=== PATIENT | female | born 1950 | race Caucasian/White ===

== ENCOUNTER 2017-01-11 11:33 | Emergency (ER) | payer OTHER ==
--- NOTE | 2017-01-11 12:10 | CPEKG ---
Heart Rate: 93 RR Interval: 645 P-R Interval: 164 QRSD Interval: 78 QT Interval: 360 QTC Interval: 448 P [place]: 50 QRS [place]: 50 T Wave [place]: 43 EKG Severity - NORMAL ECG - EKG Impression: SINUS RHYTHM Electronically Signed By: Urbano Canales 11-Jan-2017 15:41:10
[2017-01-11] MEDS ORDERED: IPRATROPIUM/ALBUTEROL 3 ML DEYVIAL IH ONE (12:21)
--- NOTE | 2017-01-11 12:21 | EDPHY ---
H & P Time Seen by Provider: 01/11/17 11:54 HPI/ROS: Chief complaint. Cough, shortness of breath HPI. 66-year-old female cough with some shortness of breath for 2 days. Cough is nonproductive. It is hard to sleep at night secondary to cough. History of pneumonia. No fever. Her sides hurt from coughing. She also has a history of asthma. Exposure to sick contacts 5 days ago with the flu. ROS Constitutional. no fever/chills, no weakness Eyes. no problems with vision ENT. no sore throat, no nasal drainage Cardiovascular. Sides of chest hurt from coughing Respiratory. Shortness of breath and cough Abdominal. no abdominal pain, no nausea/vomiting, no diarrhea . no problems urinating MS. no calf pain/swelling, no neck/back pain, no joint pain Skin. no rash Lymph. no swollen glands Neuro. no headache, no dizziness, no difficulty walking or with speech Past Medical/Surgical History: Asthma and pneumonia, hypertension Social History: Single nonsmoker no alcohol Smoking Status: Former smoker Physical Exam: General Appearance: Alert well-developed female mild distress vitals are stable. Initial O2 saturation 88% on room air Eyes: Pupils equal and round no pallor or injection. ENT, Mouth: Mucous membranes are moist. Respiratory: No retractions. Lungs are clear Cardiovascular: Regular rate and rhythm. Gastrointestinal: Abdomen is soft and nontender, no masses, bowel sounds normal. Neurological: Awake and alert, sensory and motor exams grossly normal. Skin: Warm and dry, no rashes. Musculoskeletal: Neck is supple nontender. Extremities symmetrical, full range of motion. Psychiatric: Patient is oriented X 3, there is no agitation. Constitutional: Initial Vital Signs Temperature (C) 37.6 C 01/11/17 11:38 Heart Rate 95 01/11/17 11:38 Blood Pressure 148/83 H 01/11/17 11:38 O2 Sat (%) 88 L 01/11/17 11:38 O2 Delivery Mode Room Air O2 (L/minute) 2 Allergies/Adverse Reactions: Penicillins Allergy (Intermediate, Verified 01/11/17 11:42) Hives Home Medications: Medication Instructions Recorded Albuterol Sulfate [PROVENTIL HFA] 2 puffs IH Q4-6PRN PRN #1 01/11/17 hfa.aer.ad HYDROcodone/HOMATROPINE HYCODA 1 tsp PO Q4-6PRN PRN #100 ml 01/11/17 [Hycodan Syrup (*)] Hydrochlorothiazide [HCTZ (*)] 25 mg PO DAILY 01/11/17 Lisinopril [Zestril 20 mg (*)] 20 mg PO DAILY 01/11/17 Oseltamivir Phosphate [Tamiflu 75 75 mg PO BID #10 cap 01/11/17 mg (*)] amLODIPine BESYLATE [Norvasc 5 mg 5 mg PO DAILY 01/11/17 (*)] Medical Decision Making - Diagnostics EKG Interpretation: EKG interpreted by me shows normal sinus rhythm with normal interval and axis. QRS is normal no significant ST elevation or depression. Rate 93 Imaging: Chest x-ray shows no evidence for pneumonia Procedures: Patricia kruegerrachristine ED Course/Re-evaluation: After updraft patient's lungs sound somewhat more clear. She feels somewhat better. Flu swab is positive for flu A re-evaluation at 2:20 p.m. patient and I discussed imaging and lab results. We discussed treatment plan including criteria for return importance of follow-up further evaluation. She expresses understanding and agreement Differential Diagnosis: I considered pneumonia influenza, COPD, acute coronary syndrome - Data Points Laboratory Results: Laboratory Results 01/11/17 12:15 01/11/17 12:15 01/11/17 01/11/17 01/11/17 12:25 12:15 12:15 WBC RBC Hgb Hct MCV MCH MCHC RDW Plt Count MPV Neut % (Auto) Lymph % (Auto) [place] % (Auto) Eos % (Auto) Baso % (Auto) Nucleat RBC Rel Count Absolute Neuts (auto) Absolute Lymphs (auto) Absolute Monos (auto) Absolute Eos (auto) Absolute Basos (auto) Absolute Nucleated RBC Immature Gran % Immature Gran # VBG Lactic Acid 1.0 mmol/L mmol/L (0.7-2.1) Sodium 131 mEq/L L mEq/L (134-144) Potassium 4.4 mEq/L mEq/L (3.5-5.2) Chloride 96 mEq/L L mEq/L (97-110) Carbon Dioxide 22 mEq/l mEq/l (22-31) Anion Gap 13 mEq/L mEq/L (8-16) BUN 13 mg/dL mg/dL (7-23) Creatinine 0.6 mg/dL mg/dL (0.6-1.0) Estimated GFR > 60 Glucose 110 mg/dL H mg/dL (70-100) Calcium 9.3 mg/dL mg/dL (8.5-10.4) Troponin I < 0.012 ng/mL ng/mL (0-0.034) NT-Pro-B Natriuret Pep 128 pg/mL H pg/mL (0-125) Influenza A & B (PCR) POSITIVE FOR FLU A H (NEGATIVE) 01/11/17 12:15 WBC 5.49 10^3/uL 10^3/uL (3.80-9.50) RBC 4.50 10^6/uL 10^6/uL (4.18-5.33) Hgb 15.0 g/dL g/dL (12.6-16.3) Hct 42.3 % % (38.0-47.0) MCV 94.0 fL fL (81.5-99.8) MCH 33.3 pg pg (27.9-34.1) MCHC 35.5 g/dL g/dL (32.4-36.7) RDW 12.6 % % (11.5-15.2) Plt Count 172 10^3/uL 10^3/uL (150-400) MPV 9.8 fL fL (8.7-11.7) Neut % (Auto) 76.7 % H % (39.3-74.2) Lymph % (Auto) 8.9 % L % (15.0-45.0) [place] % (Auto) 9.5 % % (4.5-13.0) Eos % (Auto) 2.0 % % (0.6-7.6) Baso % (Auto) 1.3 % % (0.3-1.7) Nucleat RBC Rel Count 0.0 % % (0.0-0.2) Absolute Neuts (auto) 4.21 10^3/uL 10^3/uL (1.70-6.50) Absolute Lymphs (auto) 0.49 10^3/uL L 10^3/uL (1.00-3.00) Absolute Monos (auto) 0.52 10^3/uL 10^3/uL (0.30-0.80) Absolute Eos (auto) 0.11 10^3/uL 10^3/uL (0.03-0.40) Absolute Basos (auto) 0.07 10^3/uL 10^3/uL (0.02-0.10) Absolute Nucleated RBC 0.00 10^3/uL 10^3/uL (0-0.01) Immature Gran % 1.6 % H % (0.0-1.1) Immature Gran # 0.09 10^3/uL 10^3/uL (0.00-0.10) VBG Lactic Acid Sodium Potassium Chloride Carbon Dioxide Anion Gap BUN Creatinine Estimated GFR Glucose Calcium Troponin I NT-Pro-B Natriuret Pep Influenza A & B (PCR) Medications Given: Discontinued Medications Albuterol/Ipratropium (Duoneb) 3 ml IH EDNOW ONE Stop: 01/11/17 12:22 Last Admin: 01/11/17 12:44 Dose: 3 ml Departure - Departure Disposition: Home, Routine, Self-Care Clinical Impression: Influenza A Condition: Good Instructions: Influenza (ED) Additional Instructions: Drink plenty of fluids and stay hydrated. Tylenol or Advil as needed for fever. Tamiflu for treatment for your influenza. Albuterol inhaler using 2 puffs every 4 hours to help with breathing and cough. Hycodan cough syrup for cough. Return for worsening symptoms. Recheck with Dr. Mckeon in 2 days if not improved Referrals: Milton Mckeon MD [Primary Care Provider] - 2-3 days, if not improved Prescriptions: Albuterol Sulfate [PROVENTIL HFA] 2 puffs IH Q4-6PRN PRN #1 hfa.aer.ad PRN Reason: Short Of Breath/Dyspnea HYDROcodone/HOMATROPINE HYCODA [Hycodan Syrup (*)] 1 tsp PO Q4-6PRN PRN #100 ml PRN Reason: Cough, Moderate Oseltamivir Phosphate [Tamiflu 75 mg (*)] 75 mg PO BID #10 cap
[2017-01-11 12:24] LABS: % IMMATURE GRANULYOCYTES 1.6 % (0.0-1.1); ABSOLUTE IMMATURE GRANULOCYTES 0.09 10^3/uL (0.00-0.10); ADD DIFF? NO; ADD MORPH? NO; ADD SCAN? NO; ATYPICAL LYMPHOCYTE FLAG 0 (0-99); FRAGMENT RBC FLAG 0 (0-99); HEMATOCRIT 42.3 % (38.0-47.0); LEFT SHIFT FLG 10 (0-99); LIPEMIA HEMOLYSIS FLAG 90 (0-99); MEAN CELL HEMOGLOBIN 33.3 pg (27.9-34.1); MEAN CELL HEMOGLOBIN CONCENTR. 35.5 g/dL (32.4-36.7); MEAN PLATELET VOLUME 9.8 fL (8.7-11.7); PLATELET CLUMPS FLAG 10 (0-99); PLATELET COUNT 172 10^3/uL (150-400); RED CELL DISTRIBUTION WIDTH 12.6 % (11.5-15.2)
[2017-01-11 12:38] LABS: ANION GAP 13 mEq/L (8-16); CALCIUM 9.3 mg/dL (8.5-10.4); CARBON DIOXIDE 22 mEq/l (22-31); CHLORIDE 96 mEq/L (97-110); CREATININE 0.6 mg/dL (0.6-1.0); GLOMERULAR FILTRATION RATE > 60; GLUCOSE 110 mg/dL (70-100); POTASSIUM 4.4 mEq/L (3.5-5.2); SODIUM 131 mEq/L (134-144)
[2017-01-11 12:50] LABS: TROPONIN I < 0.012 ng/mL (0-0.034)
[2017-01-11 14:43] VITALS: BP 107/90; PULSE 83; RESP 16; TEMP 98.2; O2SAT 90
== END 2017-01-11 14:42 | disposition home or self-care (01) ==
DX: J10.1 Influenza due to other identified influenza virus with other respiratory manifestations (principal); I10 Essential (primary) hypertension; J45.909 Unspecified asthma, uncomplicated; Z87.891 Personal history of nicotine dependence

== ENCOUNTER → 2017-09-13 | Outpatient (CLI) | payer OTHER | LOC: FIMAGING 09:31 | PROVIDERS: ATTEND Family Medicine Sports Medicine | DX: M23.352 Other meniscus derangements, posterior horn of lateral meniscus, left knee (principal); M22.42 Chondromalacia patellae, left knee; M25.462 Effusion, left knee; M71.22 Synovial cyst of popliteal space [Baker], left knee ==

== ENCOUNTER → 2017-10-05 | Outpatient (CLI) | payer OTHER | LOC: FIMAGING 14:17 | PROVIDERS: ATTEND Physician Assistant | DX: Z01.818 Encounter for other preprocedural examination (principal) ==

== ENCOUNTER 2017-10-27 07:59 | Day surgery (SDC) | payer OTHER ==
--- NOTE | 2017-10-23 07:59 | GHP ---
[f rep st] HISTORY AND PHYSICAL CHIEF COMPLAINT: Left knee pain. HISTORY OF PRESENT ILLNESS: The patient is a 67-year-old female with a 7 month history of left knee pain, worsening with use over time despite multiple conservative measures. MRI revealed medial and l ateral meniscal tears as well as some osteoarthritic changes to the knee with the onset of pain occur ring after she went from a sitting to standing position where she heard and felt an acute pop within the knee followed by immense pain to the medial portion of her knee. ALLERGIES: Include penicillin. MEDICATIONS: Current medications include amlodipine, hydrochlorothiazide, lisinopril, oseltamivir an d ProAir. PRIOR MEDICAL PROBLEMS: Include arthritis, asthma, high blood pressure, sleep apnea. PRIOR SURGICAL PROBLEMS: Included a left knee arthroscopy, hysterectomy and wisdom teeth removal. SOCIAL HISTORY: She is a former smoker and uses moderate alcohol. PHYSICAL EXAMINATION: HEENT: Pupils are equal, round, reactive to light. CHEST: Clear to ausculta tion. HEART: Regular rate and rhythm. ABDOMEN: Soft and nontender. EXTREMITIES: The left knee h as tenderness to the medial and lateral joint lines as well as some tenderness to the medial compartm ent. MRI reveals medial and lateral meniscal tears as well as grade 4 chondral changes to the medial jacki rtment and grade 3 chondral changes to the lateral patellofemoral compartments. ASSESSMENT AND PLAN: Patient is status post left knee medial and lateral meniscal tears with osteoar thritis. Options were discussed. Plan is to undergo a left knee arthroscopy. /[id number]/MODL
[~2017-10-27 07:59] MED LIST: ACETAMINOPHEN 500 MG TAB PO ONE; BUPIVACAINE/EPI 0.5% 30 ML SDV ONE; CLINDAMYCIN 900 MG/DEXTROSE 50 ML IV ONE
[2017-10-27 08:54] VITALS: PULSE 75
[2017-10-27] MEDS ORDERED: LIDOCAINE 1% 2 ML INJ ID PRN (09:08)
[2017-10-27] MEDS ORDERED: LR 1,000 ML IV ONE (09:08)
[2017-10-27] MEDS ORDERED: CLINDAMYCIN 900 MG/DEXTROSE 50 ML IV ONE (09:15)
[2017-10-27] MEDS ORDERED: ACETAMINOPHEN 500 MG TAB PO ONE (09:15)
--- NOTE | 2017-10-27 10:33 | PDHPUP ---
History & Physical Update H&P update statement: This history and physical update is based on an assessment of the patient which was completed after admission or registration (within 24 hours), but prior to the surgery/procedure. H&P update: H&P reviewed & patient examined, no change in patient's condition since H&P completed
[2017-10-27] MEDS ORDERED: MIDAZOLAM 2 MG/2 ML VIAL ONE (10:47)
[2017-10-27] MEDS ORDERED: MIDAZOLAM 2 MG/2 ML VIAL IVP ONE (10:48)
--- NOTE | 2017-10-27 10:49 | PDANEPAE ---
ANE Past Medical History - Cardiovascular History Hx Hypertension: Yes Hx Arrhythmias: No Hx Chest Pain: No Hx Coronary Artery / Peripheral Vascular Disease: No Hx CHF / Valvular Disease: No Hx Palpitations: No - Pulmonary History Hx COPD: No Hx Asthma/Reactive Airway Disease: Yes Hx Recent Upper Respiratory Infection: No Hx Oxygen in Use at Home: No Hx Sleep Apnea: Yes Sleep Apnea Screening Result - Last Documented: Positive Pulmonary History Comment: ASTHMA. POS GRISELDA -MILD - NO CPAP. PNEUMONIA 2-3 YRS AGO - Neurologic History Hx Cerebrovascular Accident: No Hx Seizures: No Hx Dementia: No - Endocrine History Hx Diabetes: No Hypothyroid: No Hyperthyroid: No Obesity: yes, severe - Renal History Hx Renal Disorders: No - Liver History Hx Hepatic Disorders: No - Neurological & Psychiatric Hx Hx Neurological and Psychiatric Disorders: No - Cancer History Hx Cancer: No - Congenital Disorder History Hx Congenital Disorders: No - GI History GERD: no Hx Gastrointestinal Disorders: No - Other Health History Other Health History: SCALP DERMATITIS - OCCAS - Chronic Pain History Chronic Pain: Yes (L KNEE) - Surgical History Prior Surgeries: HYSTERECTOMY. WISDOM TEETH. PREVIOUS L KNEE SCOPE 2012. FINGER SURGERY ANE Review of Systems Review of Systems: - Exercise capacity METS (RN): 4 METS ANE Patient History - Allergies Allergies/Adverse Reactions: Penicillins Allergy (Intermediate, Verified 01/11/17 11:42) Hives - Home Medications Home Medications: Hydrochlorothiazide [HCTZ (*)] 25 mg PO DAILY 01/11/17 [Last Taken 10/27/17] Lisinopril [Zestril 20 mg (*)] 20 mg PO DAILY 01/11/17 [Last Taken 10/27/17] amLODIPine BESYLATE [Norvasc 5 mg (*)] 5 mg PO DAILY 01/11/17 [Last Taken ] Ibuprofen 09/28/17 [Last Taken 10/27/17] - NPO status NPO Since - Liquids (Date): 10/26/17 NPO Since - Liquids (Time): 23:59 NPO Since - Solids (Date): 10/26/17 NPO Since - Solids (Time): 21:00 - Anes Hx Anes Hx: no prior problems - Smoking Hx Smoking Status: Former smoker - Family Anes Hx Family Hx Anesthesia Complications: NEG ANE Labs/Vital Signs - Vital Signs Blood Pressure: 147/78 Heart Rate: 75 Respiratory Rate: 16 O2 Sat (%): 93 Height: 161.29 cm Weight: 120.202 kg ANE Physical Exam - Airway Neck exam: FROM Mallampati Score: Class 3 Mouth exam: normal dental/mouth exam - Pulmonary Pulmonary: no respiratory distress, no rales or rhonchi, clear to auscultation - Cardiovascular Cardiovascular: regular rate and rhythym, no murmur, rub, or gallop - ASA Status ASA Status: III ANE Anesthesia Plan Anesthesia Plan: MAC, spinal
[2017-10-27] MEDS ORDERED: PROPOFOL/EMULSION 500 MG/50 ML BOTTLE IV ONE (10:54)
[2017-10-27] MEDS ORDERED: fentaNYL 100 MCG/2 ML INJ ONE (10:54)
[2017-10-27] MEDS ORDERED: LIDOCAINE 2% 5 ML SDV ONE ×2 (11:13)
[2017-10-27] MEDS ORDERED: epHEDrine SULFATE 10 MG/ML SYR ONE ×2 (11:25→11:42)
[2017-10-27] MEDS ORDERED: PROMETHAZINE HCL 25 MG/ML INJ IVP PRN ×2 (11:26→12:04)
[2017-10-27] MEDS ORDERED: LR 500 ML IV PRN (11:26)
[2017-10-27] MEDS ORDERED: fentaNYL 100 MCG/2 ML INJ IVP PRN (11:26)
[2017-10-27] MEDS ORDERED: HYDROCODONE/APAP 5/325 TAB PO PRN (11:26)
[2017-10-27] MEDS ORDERED: OXYCODONE/APAP 5/325 TAB PO PRN (11:26)
[2017-10-27] MEDS ORDERED: NALOXONE HCL 0.4 MG/ML INJ IVP PRN (11:26)
[2017-10-27] MEDS ORDERED: ACETAMINOPHEN 500 MG TAB PO PRN (11:26)
[2017-10-27] MEDS ORDERED: ONDANSETRON 4 MG/2 ML VIAL IVP PRN ×2 (11:26→12:04)
[2017-10-27] MEDS ORDERED: LACTULOSE 20 GM/30 ML UDCUP PO PRN (12:04)
[2017-10-27] MEDS ORDERED: MAGNESIUM HYDROXIDE 30 ML UDCUP PO PRN (12:04)
[2017-10-27] MEDS ORDERED: ONDANSETRON DISINTEGRATING 4 MG TAB PO PRN (12:04)
[2017-10-27] MEDS ORDERED: CYCLOBENZAPRINE 10 MG TAB PO PRN (12:04)
[2017-10-27] MEDS ORDERED: oxyCODONE IR 5 MG TAB PO PRN (12:04)
[2017-10-27] MEDS ORDERED: METOCLOPRAMIDE 10 MG/2 ML VIAL IVP PRN (12:04)
[2017-10-27] MEDS ORDERED: DIPHENOXYLATE/ATROPINE LOMOTIL 1 TAB PO PRN (12:04)
[2017-10-27] MEDS ORDERED: POLYETHYLENE GLYCOL 3350 17 GM PKT PO PRN (12:04)
[2017-10-27] MEDS ORDERED: TEMAZEPAM 15 MG CAP PO PRN (12:04)
[2017-10-27] MEDS ORDERED: BISACODYL 10 MG SUPP PR PRN (12:04)
[2017-10-27] MEDS ORDERED: KETOROLAC 30 MG/1 ML SDV IVP PRN (12:04)
[2017-10-27] MEDS ORDERED: diphenhydrAMINE 25 MG CAP PO PRN (12:04)
[2017-10-27] MEDS ORDERED: PROMETHAZINE HCL 25 MG SUPPR PR PRN (12:04)
--- NOTE | 2017-10-27 12:04 | POSTOPPROG ---
Post Op Note Date of Operation: 10/27/17 Surgeon: Leola Arriola Anesthesiologist: nila Anesthesia: Spinal Pre-op Diagnosis: l knee mmt/lmt/oa Procedure: l knee scope with partial med/lat menisectomy with chondroplasty Inf/Abcess present in the surg proc area at time of surgery?: No Depth: Deep Incisional (Fascial) EBL: 50-100
[2017-10-27] MEDS ORDERED: KETOROLAC 30 MG/1 ML SDV IVP ONE (12:11)
--- NOTE | 2017-10-27 12:12 | POSTANESTH ---
Post Anesthetic Evaluation Cardiovascular Status: Tx Hyper/Hypo-tension Respiratory Status: Normal, Stable Level of Consciousness/Mental Status: Can Participate in Eval Pain Control: Adequate, Prn Tx Ordered Nausea/Vomiting Control: Adequate, Prn Tx Ordered Complications Possibly Related to Anesthesia: None Noted
[2017-10-27] MEDS ORDERED: LR 1,000 ML IV SCH (12:30)
[2017-10-27] MEDS ORDERED: epHEDrine SULFATE 10 MG/ML SYR IM ONE (12:45)
--- NOTE | 2017-10-27 12:52 | GOP ---
[f rep st] OPERATIVE REPORT DATE OF OPERATION: 10/27/2017 SURGEON: Leola Arriola MD ANESTHESIA: By spinal. PREOPERATIVE DIAGNOSIS: Left knee medial and lateral meniscal tears with osteoarthritic changes. POSTOPERATIVE DIAGNOSIS: Left knee medial and lateral meniscal tears with osteoarthritic changes, wi th grade 3 chondral changes to the lateral compartment and the patellofemoral compartment. PROCEDURE PERFORMED: Left knee arthroscopy with partial medial, partial lateral meniscectomy; chondr oplasty of the lateral and patellofemoral joint. FINDINGS: INDICATIONS: This is a 67-year-old female with a several-month history of left knee pain, with some being chronic in nature; however, she had an acute incident causing sharper pain noted within the kne e. MRI revealed a new tear of the lateral meniscus. She wishes to have surgery in order to resolve the problem. DESCRIPTION OF PROCEDURE: The patient was brought to the operating room after the left side had been identified as correct side by the patient, nurse and physician. Once in the operating room, she was given an epidural nerve block. She was then placed supine on the operating room table. She had a t ourniquet placed around the upper portion of the left thigh, and both legs placed in appropriate leg holders. Left lower extremity was then sterilely prepped and draped in the usual fashion using a GSI solution. Once prepped and draped, limb was exsanguinated, tourniquet inflated to 250 mmHg. Using old scars, an incision was made in the superomedial portion of the knee and an outflow trocar w as inserted without difficulty. A 2nd incision was made lateral to the patellar tendon between the i nferior pole of the patella and the tibial plateau, and the camera was introduced without difficulty. Inspection of the joint revealed no loose bodies in suprapatellar pouch, in the medial or lateral g utter. There was an abundant amount of inflammation, however, within the knee. There was noted to b e grade 3 chondral changes to the patella as well as the trochlea. ACL was noted to be intact. Insp ection of the medial compartment revealed tearing of the posterior horn of the medial meniscus, with some minor chondral changes. Inspection of the lateral compartment revealed extensive tearing of the posterior horn and body of the lateral meniscus along with extensive grade 3 chondral changes to the lateral compartment and one small patch of grade 4 chondral changes. Therefore, a third incision wa s made medial to the patellar tendon between the inferior pole of the patella and the tibial plateau, and alternatingly used arthroscopic shaver and a straight biter to debride and debulk the tears of t he medial and lateral meniscus and remove the loose fragments of cartilage from the medial, lateral a nd patellofemoral compartments. Once completed, all instruments were removed from the knee with 30 cc of Marcaine infused in the knee joint. The 3 portal sites were closed using 3-0 nylon suture in a [id number]-dy-bduct type stitch. The wounds were dressed with Xeroform, 4 x 4, and Kerlix. Tourniquet was deflated at 21 minutes. The l eve was completely undraped in the operating room, tourniquet removed from the thigh, and an Alexandre wrap placed around the knee. She then had the right leg taken out of its leg suh. She was moved onto a stretcher, and sent to recovery room in good condition. TOURNIQUET TIME: 21 minutes. /[id number]/MODL
[2017-10-27] MEDS ORDERED: ONDANSETRON 4 MG/2 ML VIAL ONE (13:19)
[2017-10-27 13:49] VITALS: RESP 15
[2017-10-27] MEDS ORDERED: KETOROLAC 15 MG/1 ML SDV ONE (14:59)
[2017-10-27] MEDS ORDERED: KETOROLAC 30 MG/1 ML SDV ONE (15:03)
[2017-10-27 15:42] VITALS: BP 122/80; TEMP 98.1; O2SAT 94
[2017-10-27] MEDS ORDERED: ACETAMINOPHEN 325 MG TAB PO SCH (18:00)
[2017-10-27] MEDS ORDERED: SENNOSIDES/DOCUSATE SODIUM TAB PO SCH (21:00)
[2017-10-27] MEDS ORDERED: FAMOTIDINE 20 MG TAB PO SCH (21:00)
[2017-10-27] MEDS ORDERED: ASPIRIN 325 MG TAB PO SCH (21:00)
== END 2017-10-27 15:30 | disposition home or self-care (01) ==
LOC: FSGY 07:59
PROVIDERS: ATTEND Orthopaedic Surgery
PROC: 0SBD4ZZ Excision of Left Knee Joint, Percutaneous Endoscopic Approach (ICD-10-PCS; principal; 2017-10-27 10:00)
DX: S83.242A Other tear of medial meniscus, current injury, left knee, initial encounter (principal); S83.282A Other tear of lateral meniscus, current injury, left knee, initial encounter; M24.10 Other articular cartilage disorders, unspecified site; M17.12 Unilateral primary osteoarthritis, left knee; I10 Essential (primary) hypertension; E66.01 Morbid (severe) obesity due to excess calories; G47.30 Sleep apnea, unspecified; J45.909 Unspecified asthma, uncomplicated; Z68.42 Body mass index [BMI] 45.0-49.9, adult; Z88.0 Allergy status to penicillin; Z87.891 Personal history of nicotine dependence; X50.9XXA Other and unspecified overexertion or strenuous movements or postures, initial encounter
CPT/HCPCS: J1885; J2250; J2405; J2704; J3010